=== PATIENT | male | born 1955 | race Caucasian/White ===

== ENCOUNTER → 2022-01-11 | Outpatient (CLI) | payer OTHER | LOC: HEART 5 08:56 | DX: I48.0 Paroxysmal atrial fibrillation (principal); I49.5 Sick sinus syndrome; I07.1 Rheumatic tricuspid insufficiency; Z95.0 Presence of cardiac pacemaker | CPT/HCPCS: 93306 ==

== ENCOUNTER → 2022-01-26 | Outpatient (CLI) | payer OTHER ==
[~2022-01-26] MED LIST: CLEOCIN HCL300 MG PO; ELIQUIS5 MG PO; HYDROCODON-ACE1 EAC4 PO; IRBESARTAN-HCT1 EAC1 PO; LEVOFLOXACIN500 MG PO; LEVOTHYROXINE50 MCG PO; METOPROLOL SUCC50 MG PO; SOTALOL80 MG PO; ZOLOFT50 MG PO
[2022-01-26 10:27] LABS: HEMOGLOBIN 16.7 gm/dl (14.0-17.5); RED BLOOD COUNT 5.51 M/UL (4.20-5.50); WHITE BLOOD COUNT 10.2 K/UL (4.5-11.0)
[2022-01-26 10:58] LABS: BUN/CREATININE RATIO 15 (0-10)
== END ==
LOC: LAB 09:42
PROVIDERS: Internal Medicine Cardiovascular Disease
DX: Z45.010 Encounter for checking and testing of cardiac pacemaker pulse generator [battery] (principal); I48.0 Paroxysmal atrial fibrillation; I49.5 Sick sinus syndrome
CPT/HCPCS: 36415; 71046; 80048; 85025

== ENCOUNTER → 2022-01-30 | Outpatient (CLI) | payer OTHER | LOC: CATH 06:50 | DX: Z45.010 Encounter for checking and testing of cardiac pacemaker pulse generator [battery] (principal); I48.0 Paroxysmal atrial fibrillation; I49.5 Sick sinus syndrome; I10 Essential (primary) hypertension; Z79.01 Long term (current) use of anticoagulants; Z79.899 Other long term (current) drug therapy | CPT/HCPCS: 33213; 92960; 99152; 99153; C1785; J2250; J3010; J3370; J7040; J7050 ==